=== PATIENT | female | born 1955 | race Caucasian/White ===

== ENCOUNTER → 2017-10-16 | Outpatient (CLI) | payer OTHER ==
[~2017-10-16] VITALS: Ht 165.1 cm; Wt 137.4 kg
[~2017-10-16] MED LIST: ALEVE220 MG PO; AMARYL1 MG; AMARYL4 MG PO; ASPIRIN81 M2 PO; DILTIAZEM ER240 M1 PO; FLEXERIL PO; JANUMET 50-5001 EACH PO; JANUVIA50 MG PO; MOTRIN IB200 M1 PO; MULTI ANTIBIOTI14 GM PO; NABUMETONE 750750 M1 PO; NORCO 5-325 TA1 EACH PO; PROSCAR 5MG TABL5 MG PO; RELAFEN750 MG PO; SIMVASTATIN40 MG PO; TRAMADOL 50 MG50 MG PO; VICTOZA0.6 MG/0.1 SUBQ
--- NOTE | ~2017-10-16 | HPC ---
[facility] [address] [address] PAIN MANAGEMENT CONSULTATION Name: FORDMARY Wellington Room #: REG Alejandro Nur#: [id number] Admission: 10/16/17 Attend Phys: Kolton Parks DO Discharge: Date of : 55 Report #: [id number] THIS REPORT FOR: //name// CC: Juan Luis Parks HISTORY OF PRESENT ILLNESS: The patient is a pleasant 62-year-old female who has been treated annually for cervical radicular symptoms. She had a cervical epidural injection nearly a year ago, 10/23/2016. She had prior had an injection on 10/11/2015. She notes that the last injection afforded very good relief, in fact near 100% up until about 4-6 weeks ago. She notes while preparing for the s and traveling, she developed recurrent radicular symptoms with paresthesia going into both hands. She notes pain is 6-7 on a VAS, some subjective weakness noted in the arms as well. She has been taking nabumetone 750 b.i.d. p.r.n., little more regularly in the past couple of weeks with nominal efficacy. PHYSICAL EXAMINATION: Shows a pleasant 62-year-old female, morbidly obese with a BMI of 50.4 kilograms per meter squared. Blood pressure is nominally elevated at 165/92, pulse 87, respirations 16. Cervical range of motion is limited, modestly positively Lhermitte's. Upper extremity strength is preserved as are deep tendon reflexes. Tinel's is negative. Hand grasp is modestly diminished against the lateral fingers. I reviewed diagnostic findings, somewhat dated from December 2013, noting C5-C6 to have an eccentric left lateral annular disk bulge and C6-C7 to have similar left-sided disk bulge with bilateral neural foraminal narrowing. ASSESSMENT AND PLAN: Symptomatic cervical radiculopathy by clinical exam and history. Excellent relief near 100% for 10-11 months with prior injections, both October 2016 and 2014. We will seek authorization for repeat epidural injection next week. Discharged in good and stable condition. <ELECTRONICALLY SIGNED> By: Kolton Parks DO 10/21/17 0808 [id number] Kolton Parks DO /nt
[2017-10-16 13:44] VITALS: BP 165/92
== END ==
LOC: PAIN 07:04
DX: M54.12 Radiculopathy, cervical region (principal)

== ENCOUNTER → 2018-07-29 | Outpatient (CLI) | payer OTHER | LOC: RAD 01:45 | DX: Z12.31 Encounter for screening mammogram for malignant neoplasm of breast (principal); E11.9 Type 2 diabetes mellitus without complications ==

== ENCOUNTER → 2019-06-09 | Outpatient (CLI) | payer OTHER ==
[~2019-06-09] VITALS: Ht 165.1 cm; Wt 137.3 kg
[~2019-06-09] MED LIST changes: -JANUMET 50-5001 EACH PO; +JANUMET XR 1001 EACH PO; +LIPITOR40 MG PO; +WELLBUTRIN XL300 MG PO
[2019-06-09 09:39] VITALS: BP 127/72
--- NOTE | 2019-06-09 09:48 | NUR ---
ALERT - Solitario Score <= 18: Add Problem PRESSURE ULCER RISK to Patient's Care Plan
--- NOTE | 2019-06-16 16:33 | HPC ---
[facility] [address] [place] [address] PAIN MANAGEMENT CONSULTATION Name: MARY YOUNGBLOOD Room #: REG ANISA Soria.#: [id number] Admission: 06/09/19 Attend Phys: Jarocho Knapp MD Discharge: Date of : 55 Report #: [id number] THIS REPORT FOR: //name// CC: VICK Knapp DATE OF SERVICE: 06/09/2019 Followup visit for chronic low back pain with radiculopathy. It has been over 2 years since we last saw the patient. She was previously seen in our clinic by Dr. Kolton Parks who performed cervical epidural injections for her. She responded nicely to those injections with nearly complete pain relief. This is as long as she has gone between injections dating back to her initial treatments which began in 2012. She is now complaining once again of symptoms of numbness and tingling radiating into both arms, but most persistent in the right. They follow a C6-C7 distribution. She describes intensity as 7/10. She has had some generalized weakness. It is worse at night when she is lying in bed and it can improve during the day when she has motion. I reviewed the previous injections performed by Dr. Parks at C7-T1. MEDICATIONS: Bupropion, atorvastatin, nabumetone, Victoza, Janumet, simvastatin, aspirin, glimepiride. ALLERGIES: MORPHINE. PAST MEDICAL HISTORY: Significant for bilateral knee replacement with revision, non-insulin dependent diabetes. Surgeries also include cholecystectomy and hysterectomy. PHYSICAL EXAMINATION: VITAL SIGNS: She is 5 feet 5 inches, 302 pounds with a BMI of 50.4. VITAL SIGNS: Blood pressure 127/72, heart rate 77, respirations 14. HEENT: Head is normal with pupils equal, round, reactive to light. EOMs are intact. Mucous membranes are moist. NECK: Supple with good range of motion in all planes. Extension does reproduce some symptoms into the neck, but not radiation into the arms. There is a negative Spurling's test. CHEST: Clear to auscultation. CARDIAC: Rhythm is regular. MUSCULOSKELETAL: Reveals some occipital and paravertebral tenderness along the lower cervical range. Good strength in the upper extremities with no weakness noted in triceps, biceps or deltoid. Excellent permit review assistant strength. Sensation is intact. Deep tendon reflexes in lower extremities are absent. No evidence of [facility] [address] [place] [address] PAIN MANAGEMENT CONSULTATION Name: FORDMARY Wellington Room #: REG ANISA Nur#: [id number] Admission: 06/09/19 Attend Phys: Jarocho Knapp MD Discharge: Date of : 55 Report #: [id number] hyperreflexia to suggest cord compression. Dr. Parks's notes from 2016 note an MRI of 2013 with eccentric left lateral annular disk bulge and a C6-C7 bulging as well. IMPRESSION: Recurrent cervical radiculopathy. She has had excellent response to previous epidural steroid injections. There is no evidence to suggest cord compression at this time, and I think that an MRI is certainly elective, we could hold off on a new MRI prior to performing a cervical epidural injection. I have discussed the procedure with her once again with potential risks and benefits. I would repeat the injection as Dr. Parks has at C7-T1 or perhaps C6-C7. A single injection may be all that she needs. I would avoid additional medications at this time until we have completed the cervical injection. Preauthorization is required through her insurance company. Followup visit scheduled sometime next week after we received authorization. <ELECTRONICALLY SIGNED> By: Jarocho Knapp MD 06/16/19 [id number] [id number] Jarocho Knapp MD /nt
== END ==
LOC: PAIN 06:47
DX: M54.16 Radiculopathy, lumbar region (principal); M54.12 Radiculopathy, cervical region; E11.9 Type 2 diabetes mellitus without complications; Z79.899 Other long term (current) drug therapy; Z79.82 Long term (current) use of aspirin; Z88.8 Allergy status to other drugs, medicaments and biological substances; Z90.49 Acquired absence of other specified parts of digestive tract; Z90.710 Acquired absence of both cervix and uterus

== ENCOUNTER → 2019-06-27 | Outpatient (CLI) | payer OTHER ==
[~2019-06-27] VITALS: Ht 165.1 cm; Wt 136.8 kg
--- NOTE | ~2019-06-27 | HPC ---
[facility] [place] [address] PAIN MANAGEMENT CONSULTATION Name: MARY YOUGNBLOOD Room #: REG [facility] Yang.#: [id number] Admission: 06/27/19 Attend Phys: Jarocho Knapp MD Discharge: Date of : 55 Report #: [id number] THIS REPORT FOR: //name// CC: Juan Luis Laboy DO Jarocho Knapp DATE OF SERVICE: 06/27/2019 Followup visit for cervical radiculopathy. The patient returns to pain clinic today for cervical epidural injection. I saw her on 06/09/2019 and we were required to receive a preauthorization before going forward. I have reviewed Dr. Parks's notes once again and looked at his films. He performed the injection at C7-T1. She has a C6-C7 bulging. Pain remains similar to previous response, pain is bilateral tingling. She also has some numbness. Symptoms are worse on the right. I have reviewed the procedure with the potential risks and benefits and have discussed recovery and she is anxious to proceed. PROCEDURE: Cervical epidural injection under fluoroscopic guidance. DESCRIPTION OF PROCEDURE: After informed consent, she was taken to the fluoroscopic suite and placed prone, skin prepped with ChloraPrep. Skin was anesthetized over the C6-C7 interspace and a 20-gauge Tuohy epidural needle advanced on the first attempt into the epidural space using loss of resistance technique. There was no blood nor CSF aspirated. A 1 mL of Omnipaque was injected and excellent epidurogram was achieved to the right of midline. It was followed then by 3 mL of 0.5% lidocaine mixed with 80 mg of triamcinolone. She tolerated the procedure well and was observed for 45 minutes and discharged. Followup visit is planned in the pain clinic on an as needed basis in the future. No medications were ordered. By: [id number] [id number] Jarocho Knapp MD /nt
[2019-06-27 15:12] VITALS: BP 145/92
--- NOTE | 2019-06-27 15:39 | NUR ---
Pain Clinic Assessment: 1. History of Osteoarthritis: HANDS History of Rheumatoid Arthritis: NO 2. Height: 5 ft. 5 in. 165.1 cm. Weight: 301.6 lb. oz. 136.805 kg. Patient's BMI: 50.2 3. Vital Signs: BP: 145/92 Pulse: 86 Resp: 16 Temp: 02 Sat: 98 ECG Mon: 4. Pain Intensity: 6-7 5. Fall Risk: Dizziness: N Needs help standing or walking: N Fallen in the last 3 months: N Fall risk comments: 6. Patient on Blood Thinner: None 7. History of Hypertension: N 8. Opioid Therapy greater than 6 weeks: N Opiate Contract Signed: 9. Risk Assessment Tool Provided: 10. Functional Assessment Tool: 11. Recreational Drug Use: Never Drug Type: Tobacco Use: Former Smoker Tobacco Type: Cigarettes Amount or Packs/day: 1-2 PPD How Many Years: 10 Alcohol Use: Yes Frequency: Special Occasions Quant: RARELY
== END | disposition home or self-care (01) ==
LOC: PAIN 06:57
DX: M54.12 Radiculopathy, cervical region (principal); G89.29 Other chronic pain; Z87.891 Personal history of nicotine dependence; Z98.890 Other specified postprocedural states; Z88.8 Allergy status to other drugs, medicaments and biological substances; Z79.82 Long term (current) use of aspirin; Z79.899 Other long term (current) drug therapy

== ENCOUNTER → 2019-06-30 | Outpatient (CLI) | payer OTHER | LOC: BC 13:06 | DX: Z12.31 Encounter for screening mammogram for malignant neoplasm of breast (principal) ==

== ENCOUNTER → 2020-01-13 | Outpatient (CLI) | payer OTHER | LOC: RAD 09:16 | DX: R05 Cough (principal) ==

== ENCOUNTER → 2021-05-13 | Outpatient (CLI) | payer OTHER | LOC: BC 13:09 | PROVIDERS: ATTEND Obstetrics & Gynecology | DX: Z12.31 Encounter for screening mammogram for malignant neoplasm of breast (principal) ==